=== PATIENT | male | born 2005 | race Hispanic/Latino ===

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

== ENCOUNTER 2023-03-10 20:36 | Emergency (ER) | payer BC, OTHER, SELFPAY ==
[2023-03-10 20:59] LABS: Bacteria/HPF 1+ HPF (None Seen); Bilirubin Negative (Negative); Blood, Urine Negative (Negative); CAUTI Indications for Culture Dysuria,urgency,freq; Clarity Clear (Clear); Glucose, Urine (Dipstick) Greater than 1000 mg/dL (Negative); Ketone, Urine 20 mg/dL (Negative); Leukocyte 500 Leu/uL (Negative); Nitrite Negative (Negative); Protein, Urine (Dipstick) Negative (Neg-Trace); RBC/HPF 0-3 HPF (0-3); Specific Gravity, Urine 1.036 (1.002-1.036); Squamous Epithelial 0-3 HPF (0-3); Urobilinogen Normal mg/dL (Less than 2); pH, Urine 6.5 (5.0-9.0)
[2023-03-10 21:00] LABS: Urine Culture Reflex Yes Yes
[2023-03-10] MEDS ORDERED: Ketorolac Tromethamine 30 MG/ML VIAL ONE (21:19)
[2023-03-10] MEDS ORDERED: Dicyclomine 20 MG TAB ONE (21:19)
[2023-03-10 21:25] LABS: #Monocytes 0.5 thou/uL (0.11-0.59); #Neutrophils 5.5 thou/uL (1.40-6.50); %Basophils 0.4 % (0.0-1.0); %Eosinophils 0.1 % (0.0-10.0); %Lymphocytes 16.9 % (28.0-48.0); %Monocytes 6.9 % (0.0-4.0); %Neutrophils 75.4 % (31.0-61.0); Hematocrit 42.7 % (42.0-52.0); Hemoglobin 13.4 g/dL (14.0-18.0); Mean Corpuscular HGB CONC 31.4 g/dL (32.0-36.0); Mean Corpuscular Hemoglobin 19.1 pg (25.0-35.0); Mean Platelet Volume 9.9 fL (7.4-10.4); Platelet Count 205 10x3/uL (130-400); RBC Distribution Width 17.1 % (11.5-14.5); White Blood Cell (WBC) Count 7.3 10x3/uL (4.8-10.8)
[2023-03-10 22:05] LABS: ALT (SGPT) 11 U/L (8-55); AST (SGOT) 12 U/L (10-45); Albumin 4.1 g/dL (3.5-5.0); Alkaline Phosphatase 104 U/L (50-130); Anion Gap 17 mmol/L (10-20); BUN (Urea Nitrogen) 13 mg/dL (8.4-21.0); Bilirubin, Total 0.7 mg/dL (0.2-1.2); Calc. Creatinine Clearance 0 mL/min (70-130); Calcium 9.2 mg/dL (7.8-10.44); Carbon Dioxide 20 mmol/L (22-29); Chloride 95 mmol/L (98-107); Estimated GFR 121; Globulin 2.9 g/dL (2.4-3.5); Lipase 6 U/L (8-78); Potassium 4.2 mmol/L (3.5-5.1); Sodium 128 mmol/L (136-145)
[2023-03-10 22:09] LABS: Glucose 436 mg/dL (70-105)
== END 2023-03-10 22:47 | disposition home or self-care (01) ==
LOC: ERS 20:36
DX: E11.65 Type 2 diabetes mellitus with hyperglycemia (principal); K52.9 Noninfective gastroenteritis and colitis, unspecified; Z79.4 Long term (current) use of insulin
CPT/HCPCS: 36416; 80053; 81001; 82010; 83690; 85025; 87086; 96361; 96374; J1885

== ENCOUNTER 2023-04-08 13:33 | Inpatient (IN) | payer BC ==
[2023-04-08 14:14] LABS: #Basophils 0.1 thou/uL (0.0-0.2); #Monocytes 0.6 thou/uL (0.11-0.59); #Neutrophils 6.9 thou/uL (1.40-6.50); %Basophils 0.5 % (0.0-1.0); %Lymphocytes 23.4 % (28.0-48.0); %Monocytes 6.1 % (0.0-4.0); %Neutrophils 69.6 % (31.0-61.0); Hematocrit 50.4 % (42.0-52.0); Hemoglobin 15.1 g/dL (14.0-18.0); Mean Corpuscular Hemoglobin 19.1 pg (25.0-35.0); Mean Corpuscular Volume 63.8 fl (78.0-98.0); Mean Platelet Volume 9.2 fL (7.4-10.4); Platelet Count 298 10x3/uL (130-400); White Blood Cell (WBC) Count 9.9 10x3/uL (4.8-10.8)
[2023-04-08 14:40] LABS: Anisocytosis SLIGHT = 6-15 cells HPF (0-5); CellaVision Operator ID LAB.MJL; Hypochromia SLIGHT = 6-15 cells HPF (0-5); Microcytosis SLIGHT = 6-15 cells HPF (0-5); Ovalocytes SLIGHT = 2-5 cells HPF (0-1); Platelet Adequacy Comment Platelets Normal; Polychromasia SLIGHT = 2-3 cells HPF (0-2)
[2023-04-08 14:49] LABS: ALT (SGPT) 13 U/L (8-55); AST (SGOT) 8 U/L (10-45); Albumin 5.6 g/dL (3.5-5.0); Alkaline Phosphatase 121 U/L (50-130); BUN (Urea Nitrogen) 13 mg/dL (8.4-21.0); Bilirubin, Total 0.9 mg/dL (0.2-1.2); Calc. Creatinine Clearance 0 mL/min (70-130); Calcium 9.1 mg/dL (7.8-10.44); Chloride 101 mmol/L (98-107); Estimated GFR 77; Glucose 173 mg/dL (70-105); Lipase 10 U/L (8-78); Potassium 4.1 mmol/L (3.5-5.1); Protein, Total 8.6 g/dL (6.0-8.3); Sodium 132 mmol/L (136-145)
[2023-04-08] MEDS ORDERED: Ondansetron PF 4 MG/2 ML Vial ONE (14:52)
[2023-04-08 14:54] LABS: Troponin I Less than 0.010 ng/mL (< 0.028)
[2023-04-08 14:57] LABS: Carbon Dioxide Less than 8 mmol/L (22-29)
[2023-04-08 15:15] LABS: Bilirubin Small (Negative); Blood, Urine Small (Negative); Clarity Hazy (Clear); Glucose, Urine (Dipstick) Negative (Negative); Ketone, Urine > or equal to 80 mg/dL (Negative); Leukocyte Trace (Negative); Nitrite Negative (Negative); Protein, Urine (Dipstick) 100 mg/dL (Neg-Trace); Urobilinogen 0.2 mg/dL (Less than 2); pH, Urine 5.5 (5.0-9.0)
[2023-04-08 15:27] LABS: Bacteria/HPF Rare-Few HPF (None Seen); CAUTI Indications for Culture Dysuria,urgency,freq; RBC/HPF 0-3 HPF (0-3); Squamous Epithelial None Seen HPF (0-3); WBC/HPF 0-3 HPF (0-3)
[2023-04-08] MEDS ORDERED: Dextrose 5 %-0.45 % NaCl 1,000 ML IV PRN (15:27)
[2023-04-08] MEDS ORDERED: Dextrose 50% Abboject 50 ML SYRINGE SLOW IVP PRN (15:27)
[2023-04-08] MEDS ORDERED: Electrolyte Replacement Protocol 1 EACH IVPB SCH (15:27)
[2023-04-08 15:28] LABS: Urine Culture Reflex No No
[2023-04-08] MEDS ORDERED: HUMULIN R 100 UNITS in Sodium Chloride 0.9% 100 ML IVPB SCH (15:30)
[2023-04-08] MEDS ORDERED: Ondansetron ODT 4 MG TAB PO PRN (15:33)
[2023-04-08] MEDS ORDERED: Ondansetron PF 4 MG/2 ML Vial IVP PRN (15:33)
[2023-04-08] MEDS ORDERED: Acetaminophen 325 MG TAB PO PRN (15:33)
[2023-04-08] MEDS ORDERED: D5 1/2 NS w/20 mEq KCL 1,000 ML ONE (15:35)
[2023-04-08] MEDS ORDERED: Acetaminophen 500 MG TAB ONE (15:55)
[2023-04-08] MEDS ORDERED: INSULIN REGULAR IN 0.9 % NACL 100 UNITS/100 ML BAG ONE (15:55)
[2023-04-08 16:20] LABS: Base Excess -19.4 mEq/L (-2.0 to +3.0); Calcium, Ionized (venous) 1.17 mmol/L (1.16-1.32); Chloride (VBG) 104 mmol/L (98-106); Hematocrit-VBG 42 % (42.0-52.0); Hemoglobin (Hb) 14.3 g/dL (13.2-17.3); Sodium 135 mmol/L (133-146)
[2023-04-08 16:24] LABS: Actual Bicarbonate (HCO3v) 7.9 mEq/L (22-28)
[2023-04-08 16:58] LABS: Magnesium 1.8 mg/dL (1.7-2.2); Phosphorus 3.2 mg/dL (2.3-4.7)
[2023-04-08 17:16] VITALS: BMI 21.5
[2023-04-08] MEDS ORDERED: Magnesium 2 GM/50 ML(in water) 2 GM in Premix Bag 1 BAG IVPB SCH (18:00)
[2023-04-08] MEDS: D5 1/2 NS w/20 mEq KCL 1,000 ML IV PRN (20:02)
[2023-04-08 20:34] LABS: Anion Gap 17 mmol/L (10-20); BUN (Urea Nitrogen) 6 mg/dL (8.4-21.0); Calc. Creatinine Clearance 95 mL/min (70-130); Calcium 8.2 mg/dL (7.8-10.44); Carbon Dioxide 10 mmol/L (22-29); Chloride 107 mmol/L (98-107); Estimated GFR 110; Glucose 218 mg/dL (70-105); Sodium 130 mmol/L (136-145)
[2023-04-08] MEDS: Famotidine/PF 20 mg/2ml Vial SLOW IVP SCH (21:10)
[2023-04-08] MEDS: Heparin 5,000 UNITS/ML VIAL SC SCH (21:10)
[2023-04-08] MEDS: Famotidine 20 MG TAB PO SCH (21:10)
[2023-04-09] MEDS: D5 1/2 NS w/20 mEq KCL 1,000 ML IV PRN ×4 (00:04→12:10)
[2023-04-09 04:05] LABS: Anion Gap 10 mmol/L (10-20); BUN (Urea Nitrogen) 6 mg/dL (8.4-21.0); Calc. Creatinine Clearance 105 mL/min (70-130); Calcium 8.1 mg/dL (7.8-10.44); Carbon Dioxide 15 mmol/L (22-29); Chloride 111 mmol/L (98-107); Estimated GFR 125; Glucose 131 mg/dL (70-105); Potassium 3.5 mmol/L (3.5-5.1); Sodium 132 mmol/L (136-145)
[2023-04-09 04:21] LABS: #Eosinphils 0.1 thou/uL (0.0-0.7); #Monocytes 0.5 thou/uL (0.11-0.59); #Neutrophils 2.3 thou/uL (1.40-6.50); %Basophils 0.2 % (0.0-1.0); %Eosinophils 1.2 % (0.0-10.0); %Lymphocytes 40.2 % (28.0-48.0); %Monocytes 10.2 % (0.0-4.0); Mean Corpuscular HGB CONC 31.2 g/dL (32.0-36.0); Mean Corpuscular Hemoglobin 19.1 pg (25.0-35.0); Mean Platelet Volume 9.2 fL (7.4-10.4); Platelet Count 218 10x3/uL (130-400); RBC Distribution Width 15.9 % (11.5-14.5); Red Blood Cell (RBC) Count 6.14 mill/uL (4.00-5.20); White Blood Cell (WBC) Count 4.9 10x3/uL (4.8-10.8)
[2023-04-09 04:36] LABS: Hematocrit 37.5 % (42.0-52.0); Hemoglobin 11.7 g/dL (14.0-18.0); Mean Corpuscular Volume 61.1 fl (78.0-98.0)
[2023-04-09 06:53] LABS: Hemoglobin A1c 12.5 % (4.0-6.0)
[2023-04-09 06:55] LABS: Anion Gap 11 mmol/L (10-20); BUN (Urea Nitrogen) 5 mg/dL (8.4-21.0); Calc. Creatinine Clearance 118 mL/min (70-130); Calcium 8.1 mg/dL (7.8-10.44); Carbon Dioxide 15 mmol/L (22-29); Chloride 110 mmol/L (98-107); Estimated GFR 130; Glucose 125 mg/dL (70-105); Magnesium 1.8 mg/dL (1.7-2.2); Potassium 3.8 mmol/L (3.5-5.1); Sodium 132 mmol/L (136-145)
[2023-04-09] MEDS ORDERED: Magnesium 2 GM/50 ML(in water) 2 GM in Premix Bag 1 BAG IVPB SCH (08:00)
[2023-04-09] MEDS: Potassium Chloride 20 MEQ in Premix Bag 1 BAG IVPB SCH ×2 (08:11→10:16)
[2023-04-09] MEDS: PHOS-NAK 1 PKT PACK PO SCH ×2 (08:11→12:05)
[2023-04-09] MEDS: Famotidine/PF 20 mg/2ml Vial SLOW IVP SCH (08:11)
[2023-04-09] MEDS: Famotidine 20 MG TAB PO SCH ×2 (08:12→20:51)
[2023-04-09] MEDS: Heparin 5,000 UNITS/ML VIAL SC SCH (08:12)
[2023-04-09] MEDS ORDERED: D5 1/2 NS w/20 mEq KCL 1,000 ML IV PRN (16:18)
[2023-04-09] MEDS ORDERED: Insulin Glargine 30 UNITS/0.3 ML VIAL SC SCH (16:30)
[2023-04-09] MEDS ORDERED: HumaLOG 300 UNITS/3 ML VIAL SC PRN ×2 (21:17→21:34)
[2023-04-10 03:36] VITALS: TEMP 98.4
[2023-04-10 04:04] LABS: #Eosinphils 0.1 thou/uL (0.0-0.7); #Monocytes 0.4 thou/uL (0.11-0.59); #Neutrophils 1.6 thou/uL (1.40-6.50); %Basophils 0.5 % (0.0-1.0); %Eosinophils 2.1 % (0.0-10.0); %Lymphocytes 49.7 % (28.0-48.0); %Neutrophils 37.5 % (31.0-61.0); Hematocrit 38.8 % (42.0-52.0); Hemoglobin 12.3 g/dL (14.0-18.0); Mean Corpuscular HGB CONC 31.7 g/dL (32.0-36.0); Mean Corpuscular Hemoglobin 19.1 pg (25.0-35.0); Mean Corpuscular Volume 60.2 fl (78.0-98.0); Platelet Count 205 10x3/uL (130-400); RBC Distribution Width 17.2 % (11.5-14.5); Red Blood Cell (RBC) Count 6.44 mill/uL (4.00-5.20); White Blood Cell (WBC) Count 4.3 10x3/uL (4.8-10.8)
[2023-04-10 05:12] LABS: Anion Gap 14 mmol/L (10-20); BUN (Urea Nitrogen) 7 mg/dL (8.4-21.0); Calc. Creatinine Clearance 131 mL/min (70-130); Calcium 8.6 mg/dL (7.8-10.44); Carbon Dioxide 23 mmol/L (22-29); Chloride 105 mmol/L (98-107); Estimated GFR 134; Glucose 136 mg/dL (70-105); Iron 204 ug/dL (65-175); Potassium 2.9 mmol/L (3.5-5.1); Sodium 139 mmol/L (136-145)
[2023-04-10] MEDS: Potassium Chloride 20 MEQ TAB PO SCH ×2 (06:05→10:07)
[2023-04-10] MEDS ORDERED: Insulin Glargine 30 UNITS/0.3 ML VIAL SC SCH ×2 (09:00→21:00)
[2023-04-10] MEDS: Famotidine 20 MG TAB PO SCH (10:08)
[2023-04-11] MEDS ORDERED: FLU VACC QS2023-24(6MOS UP)/PF 60 MCG/0.5 ML SYRINGE IM ONE (09:00)
== END 2023-04-10 10:50 | disposition home or self-care (01) | DRG 638 ==
LOC: ERS 13:33 → IMCU/EMU 15:34
PROVIDERS: ADMIT Internal Medicine; ATTEND Family Medicine
DX: E10.10 Type 1 diabetes mellitus with ketoacidosis without coma (principal); E87.1 Hypo-osmolality and hyponatremia; N17.9 Acute kidney failure, unspecified; F31.9 Bipolar disorder, unspecified; F17.210 Nicotine dependence, cigarettes, uncomplicated; E83.42 Hypomagnesemia; E86.0 Dehydration; D50.9 Iron deficiency anemia, unspecified; Z90.49 Acquired absence of other specified parts of digestive tract; Z79.4 Long term (current) use of insulin
CPT/HCPCS: 36415; 36416; 71045; 80048; 80053; 81001; 82010; 82728; 82805; 83036; 83540; 83690; 83735; 84100; 84484; 85025; 85046; 93005; 96361; 96365; 96375; J1644; J1815; J2405; J3475; J3480; S0028